=== PATIENT | male | born 1960 | race Caucasian/White ===

== ENCOUNTER → 2016-12-08 | Outpatient (CLI) | payer OTHER ==
[2016-12-08 08:07] LABS: ABSOLUTE BASOPHILS # (AUTO) 0.1 10^3/uL (0.0-0.2); ABSOLUTE EOSINOPHILS # (AUTO) 0.3 10^3/uL (0.0-0.6); ABSOLUTE LYMPHOCYTES (AUTO) 1.8 10^3/uL (0.5-4.7); ABSOLUTE MONOCYTES (AUTO) 0.4 10^3/uL (0.1-1.4); ABSOLUTE NEUT (AUTO) 3.1 10^3/uL (1.7-8.2); BASOPHILS % (AUTO) 1.1 % (0-2); EOSINOPHILS % (AUTO) 4.9 % (0-6); HEMATOCRIT 46.8 % (37.9-51.0); HEMOGLOBIN 15.6 g/dL (13.5-17.0); LYMPHOCYTES % (AUTO) 31.4 % (13-45); MEAN CORPUSCULAR HEMOGLOBIN 30.5 pg (27.0-33.4); MEAN CORPUSCULAR HGB CONC 33.3 g/dL (32.0-36.0); MEAN CORPUSCULAR VOLUME 92 fl (80-97); MONOCYTES % (AUTO) 7.5 % (3-13); RED BLOOD COUNT 5.11 10^6/uL (4.35-5.55); RED CELL DISTRIBUTION WIDTH 12.3 % (11.5-14.0); SEGMENTED NEUTROPHILS % (AUTO) 55.1 % (42-78); WHITE BLOOD COUNT 5.7 10^3/uL (4.0-10.5)
[2016-12-08 08:37] LABS: ALANINE AMINOTRANSFERASE 26 U/L (21-72); ALBUMIN 4.2 g/dL (3.5-5.0); ALKALINE PHOSPHATASE 59 U/L (38-126); ANION GAP 10 (5-19); ASPARTATE AMINO TRANSFERASE 27 U/L (17-59); BILIRUBIN,DIRECT 0.4 mg/dL (0.0-0.4); BILIRUBIN,TOTAL 0.5 mg/dL (0.2-1.3); BLOOD UREA NITROGEN 19 mg/dL (7-20); CALCIUM 9.5 mg/dL (8.4-10.2); CARBON DIOXIDE 25 mmol/L (22-30); CHLORIDE 107 mmol/L (98-107); CHOLESTEROL 220.09 mg/dL (0-200); CREATININE RESULT 1.04 mg/dL (0.52-1.25); Direct HDL 54 mg/dL (>40); GLUCOSE 103 mg/dL (75-110); POTASSIUM 4.7 mmol/L (3.6-5.0); SODIUM 141.5 mmol/L (137-145); TOTAL PROTEIN 7.1 g/dL (6.3-8.2); TRIGLYCERIDES 73 mg/dL (<150)
[2016-12-08 08:49] LABS: DIRECT LDL 161 mg/dL (<100)
== END ==
LOC: OD 07:12
PROVIDERS: ATTEND Internal Medicine
DX: E78.5 Hyperlipidemia, unspecified (principal); K21.9 Gastro-esophageal reflux disease without esophagitis; R35.1 Nocturia; R53.82 Chronic fatigue, unspecified
CPT/HCPCS: 36415; 80053; 80061; 84153; 84443; 85025

== ENCOUNTER 2019-03-28 14:11 | Emergency (ER) | payer OTHER ==
[2019-03-28 14:16] VITALS: BP 143/85
--- NOTE | 2019-03-28 14:50 | ER Document Report ---
ED Medical Screen (RME) - General Chief Complaint: Hand Injury Stated Complaint: LEFT THUMB INJURY Time Seen by Provider: 03/28/19 14:40 Primary Care Provider: CALI MOSLEY MD [Primary Care Provider] - Follow up as needed Mode of Arrival: Ambulatory Information source: Patient Notes: 58-year-old male presented to ED for injury to the left thumb. He states he is not able to extend the thumb and that is his main concern he was able to before. He states he got a tetanus shot 2 years ago so he does not need a tetanus shot. Due to the decrease in mobility of the thumb I will put him back for 1 of the doctors to thoroughly examine the thumb before suturing it. Patient is alert oriented respirations regular nonlabored. The bleeding is controlled at this time. I have greeted and performed a rapid initial assessment of this patient. A comprehensive ED assessment and evaluation of the patient, analysis of test results and completion of medical decision making process will be conducted by an additional ED providers. TRAVEL OUTSIDE OF THE [place] IN LAST 30 DAYS: No Past Medical History - General Information source: Patient - Social History Cigarette use (# per day): No - Former Frequency of alcohol use: Occasional Drug Abuse: None Occupation: [employer] Lives with: Family Family history: Reviewed & Not Pertinent - Past Medical History Cardiac Medical History: Reports: Hx Hypercholesterolemia Pulmonary Medical History: Reports: None EENT Medical History: Reports: None Neurological Medical History: Reports: None Endocrine Medical History: Reports: None Renal/ Medical History: Reports: None Malignancy Medical History: Reports None GI Medical History: Reports: Hx Gastroesophageal Reflux Disease Musculoskeltal Medical History: Reports None Skin Medical History: Reports None Psychiatric Medical History: Reports: None Traumatic Medical History: Reports: None Infectious Medical History: Reports: None Past Surgical History: Reports: Hx Orthopedic Surgery - Right thumb surgery, left knee, Hx Tonsillectomy - Immunizations Immunizations up to date: Yes Hx Diphtheria, Pertussis, Tetanus Vaccination: Yes Physical Exam - Vital signs Vitals: Temp Pulse Resp BP Pulse Ox 97.7 F 94 16 143/85 H 96 03/28/19 14:15 03/28/19 14:15 03/28/19 14:15 03/28/19 14:15 03/28/19 14:15 Course - Vital Signs Vital signs: Temp Pulse Resp BP Pulse Ox 97.7 F 94 16 143/85 H 96 03/28/19 14:15 03/28/19 14:15 03/28/19 14:15 03/28/19 14:15 03/28/19 14:15 Doctor's Discharge - Discharge Referrals: CALI MOSLEY MD [Primary Care Provider] - Follow up as needed
[2019-03-28] MEDS ORDERED: LIDOCAINE 1% INJ-PF (10 MG/ML) 30 ML SDV INJ ONE (17:08)
--- NOTE | 2019-03-28 17:12 | ER Document Report ---
ED General - General Chief Complaint: Laceration Stated Complaint: LEFT THUMB INJURY Time Seen by Provider: 03/28/19 14:40 Primary Care Provider: CALI MOSLEY MD [Primary Care Provider] - Follow up as needed Mode of Arrival: Ambulatory TRAVEL OUTSIDE OF THE [place] IN LAST 30 DAYS: No - HPI Notes: Patient is a 58-year-old male with no significant past medical history presents complaining of a small laceration to the posterior proximal left thumb by his pocket knife prior to arrival. Patient states that he has lost the ability to extend at the IP joint. He otherwise is able to flex his thumb without difficulty. He has some soreness associated, but no significant pain otherwise. He is not on any blood thinning medications. No other concerns or complaints. Denies any headache, fever, neck pain, URI, sore throat, chest pain, palpitations, syncope, cough, shortness of breath, wheeze, dyspnea, abdominal pain, nausea/vomiting/diarrhea, urinary retention, dysuria, hematuria, loss of control of bowel or bladder, numbness/tingling, saddle anesthesia, muscle paralysis, or rash. - Related Data Allergies/Adverse Reactions: mycins Allergy (Uncoded 03/28/19 14:49) Past Medical History - General Information source: Patient - Social History Smoking Status: Unknown if Ever Smoked Cigarette use (# per day): No - Former Frequency of alcohol use: Occasional Drug Abuse: None Occupation: [employer] Lives with: Family Family History: Reviewed & Not Pertinent Patient has suicidal ideation: No Patient has homicidal ideation: No - Past Medical History Cardiac Medical History: Reports: Hx Hypercholesterolemia Pulmonary Medical History: Reports: None EENT Medical History: Reports: None Neurological Medical History: Reports: None Endocrine Medical History: Reports: None Renal/ Medical History: Reports: None Malignancy Medical History: Reports None GI Medical History: Reports: Hx Gastroesophageal Reflux Disease Musculoskeletal Medical History: Reports None Skin Medical History: Reports None Psychiatric Medical History: Reports: None Traumatic Medical History: Reports: None Infectious Medical History: Reports: None Past Surgical History: Reports: Hx Orthopedic Surgery - Right thumb surgery, left knee, Hx Tonsillectomy - Immunizations Immunizations up to date: Yes Hx Diphtheria, Pertussis, Tetanus Vaccination: Yes Review of Systems - Review of Systems -: Yes All other systems reviewed and negative Physical Exam - Vital signs Vitals: Temp Pulse Resp BP Pulse Ox 97.7 F 94 16 143/85 H 96 03/28/19 14:15 03/28/19 14:15 03/28/19 14:15 03/28/19 14:15 03/28/19 14:15 - Notes Notes: PHYSICAL EXAMINATION: GENERAL: Well-appearing, well-nourished and in no acute distress. HEAD: Atraumatic, normocephalic. NECK: Normal range of motion, supple without lymphadenopathy. No midline tenderness. LUNGS: Breath sounds clear to auscultation bilaterally and equal. No wheezes rales or rhonchi. HEART: Regular rate and rhythm without murmurs, rubs, gallops. Musculoskeletal: Lt hand: + narrow 1cm superficial laceration noted to the posterior proximal thumb. He does have FROM to flexion and extension/abduct/adduct at the MCP joint, but not to extension at the DIP. No erythema, warmth, ecchymosis, deformity, or swelling noted. N/V intact distal. FROM to passive/active otherwise throughout the hand/wrist. Strength 5+/5 aside from ext at the DIP joint. No scaphoid tenderness. No other bony tenderness. Gamekeeper negative. Extremities: No cyanosis, clubbing, or edema b/l. Peripheral pulses 2+. Capillary refill less than 3 seconds. NEUROLOGICAL: Normal speech, normal gait. Normal sensory, motor exams otherwise unremarkable PSYCH: Normal mood, normal affect. SKIN: see above. No rash Course - Re-evaluation Re-evalutation: 03/28/19 Patient is an afebrile, well-hydrated, 58-year-old male who presents to the ED with a laceration to his left proximal thumb posteriorly with probable extensor tendon laceration to the thumb as he cannot extend at the IP joint at this time. Vitals are acceptable. PE is otherwise unremarkable for any neurovascular compromise, obvious fracture/dislocation, septic joint. Patient is nontoxic- appearing and is tolerating p.o. without difficulties. Wound was thoroughly irrigated and cleansed. Wound edges were approximated appropriately utilizing 2 simple interrupted sutures. Wound dressing was placed and wound instructions reviewed. Splint placed with thumb in extension. Patient tolerated procedure well without any complications. Tetanus was updated 2 days ago. No further labs or imaging warranted. Sutures will need removed in 10 days unless directed otherwise by Ortho. Recheck with your PCM in 3-5 days or as needed. Schedule consult orthopedics, call Sunday. Return to the ED with any worsening/concerning symptoms otherwise as reviewed in discharge. Patient is in agreement. Dr. Hunt agrees with dispo/plan. - Vital Signs Vital signs: Temp Pulse Resp BP Pulse Ox 97.7 F 94 16 143/85 H 96 03/28/19 14:15 03/28/19 14:15 03/28/19 14:15 03/28/19 14:15 03/28/19 14:15 Procedures - Laceration/Wound Repair Left Thumb Wound length (cm): 1 Wound's Depth, Shape: Superficial, Linear Laceration pre-procedure: Sterile PPE donned, Sterile drapes applied, Other - chlorhexadine/saline Anesthetic type: 1% Lidocaine Volume Anesthetic (mLs): 2 Wound explored: Clean, No foreign body removed Irrigated w/ Saline (mLs): 200 Wound Debrided: none Wound Repaired With: Sutures Suture Size/Type: 4:0, Ethilon Number of Sutures: 2 Layer Closure?: No Post-procedure wound care: Sterile dressing applied, Splint applied Post-procedure NV exam normal: Yes Complications: No Discharge - Discharge Clinical Impression: Laceration of left thumb Qualifiers: Encounter type: initial encounter Damage to nail status: without damage Foreign body presence: without foreign body Qualified Code(s): S61.012A - Laceration without foreign body of left thumb without damage to nail, initial encounter Condition: Stable Disposition: HOME, SELF-CARE Instructions: Soap Cleansing ([facility]) Additional Instructions: Do not shower or bathe for 24 hours. After 24 hours you may shower but no submersion of the wound under water. Keep the original dressing on the wound for 24 hours unless the drainage soaks through. Change the dressing daily thereafter and keep the knots of the suture material clean from any dried discharge. You may leave the wound open to the air once there is no more discharge. Call orthopedics on Sunday to schedule an appointment for further evaluation and management of possible tendon laceration to the thumb. Recheck with your PCM in 3 to 5 days or as needed otherwise. Monitor for any signs of worsening pain or redness, purulent drainage, streaks, and/or fever. Return to the ED if noticing any of the above symptoms or as needed. Take medications as directed. Your sutures will need to be removed in 10 days unless directed otherwise by orthopedics. Prescriptions: Cephalexin Monohydrate [Keflex 500 mg Capsule] 500 mg PO TID #21 capsule Forms: Elevated Blood Pressure Referrals: CALI MOSLEY MD [Primary Care Provider] - Follow up as needed ANA PAULA RIVAS MD [NO LOCAL MD] - Follow up as needed MARILUZ MENDEZ DO [ACTIVE STAFF] - Follow up in 3-5 days
== END 2019-03-28 18:22 | disposition home or self-care (01) ==
LOC: ER 14:11
DX: S61.012A Laceration without foreign body of left thumb without damage to nail, initial encounter (principal); W26.0XXA Contact with knife, initial encounter; Y93.89 Activity, other specified; Z87.891 Personal history of nicotine dependence; Z88.1 Allergy status to other antibiotic agents
CPT/HCPCS: 99282; 12001; J3490

== ENCOUNTER → 2019-03-31 | Outpatient (CLI) | payer OTHER ==
--- NOTE | 2019-03-31 15:06 | EKG REPORT ---
SEVERITY:- NORMAL ECG - SINUS RHYTHM : Confirmed by: Mago Jacobo MD 31-Mar-2019 15:06:06
== END ==
LOC: OD 11:03
PROVIDERS: ATTEND Orthopaedic Surgery
DX: Z01.810 Encounter for preprocedural cardiovascular examination (principal)
CPT/HCPCS: 93005; 93010

== ENCOUNTER → 2020-05-24 | Outpatient (CLI) | payer OTHER ==
[~2020-05-24] MED LIST: COVID-19 VACCINE (PFIZER)/PF 30 MCG/0.3 ML VIAL IM ONE; EPINEPHRINE INJ/PF 1 MG/1 ML AMPULE IM PRN
== END ==
LOC: EMPHEALTH 17:36
PROVIDERS: ATTEND Internal Medicine
DX: Z23 Encounter for immunization (principal)
CPT/HCPCS: 91300